=== PATIENT | male | born 1940 | race Caucasian/White ===

== ENCOUNTER 2019-06-04 12:29 | Inpatient (IN) | payer MEDICARE, BC ==
[2019-06-04] MEDS ORDERED: Acetaminophen 325 MG Tab PO PRN (16:44)
[2019-06-04] MEDS ORDERED: Ondansetron 4 MG/2 ML SDV IV PRN (16:44)
[2019-06-04] MEDS ORDERED: Ondansetron 4 MG Tab.DIS PO PRN (16:44)
--- NOTE | 2019-06-04 17:11 | PCM.HP.2 ---
H&P History of Present Illness - General Date of Service: 06/04/19 Admit Problem/Dx: Admission Diagnosis/Problem Admission Diagnosis/Problem Brain neoplasm Source of Information: Patient, Old Records History Limitations: Reports: No Limitations - History of Present Illness Initial Comments - Free Text/Narative: Patient admitted swing bed from [facility] for palliative care. Patient had history of fall x2 in 2 weeks. Had recently hit head and on blood thinners due to atrial fib. CT scan was done followed by a MRI which showed 2 masses in the brain. Had repeat MRI which showed enhancing masses in the midline corpus callosum and right parietal lobe with small area of central necrosis. Neurosurgeon felt related to metastatic disease. Had CT scan of chest, abdomen and pelvis which only showed a small pleural effusion but no evidence of metastatic disease. Oncology was consulted and after discussion with family, it was decided to not further investigate or treat the brain masses. Family requested patient be transferred back to [place] with PT and OT and eventual custodial placement. Patient had atrial fib for which Cardizem and Metoprolol to be continued but will hold Coumadin and aspirin due to bleeding risk. Palliative care patient. Onset of Symptoms: Reports: Gradual Duration of Symptoms: Reports: Week(s): Location: Reports: Generalized Associated Symptoms: Reports: Loss of Appetite, Weakness. Denies: Confusion, Chest Pain, Cough, Headaches, Nausea/Vomiting, Shortness of Breath - Related Data Allergies/Adverse Reactions: Allergies Allergy/AdvReac Type Severity Reaction Status Date / Time No Known Allergies Allergy Verified 06/04/19 13:28 Home Medications: Home Meds Folic Acid 1 mg PO DAILY 06/04/19 [History] Lisinopril 2.5 mg PO DAILY 06/04/19 [History] Magnesium Oxide 250 mg PO DAILY 06/04/19 [History] Metoprolol Succinate [Toprol XL] 25 mg PO DAILY 06/04/19 [History] Rosuvastatin Calcium 10 mg PO DAILY 06/04/19 [History] Torsemide 20 mg PO DAILY 06/04/19 [History] dilTIAZem HCl [Diltiazem 24Hr ER] 180 mg PO DAILY 06/04/19 [History] Past Medical History Cardiovascular History: Reports: Afib, CAD, Heart Failure, High Cholesterol, Hypertension, SOB on Exertion, Other (See Below) Other Cardiovascular History: aortic valve stenosis. palpitations Respiratory History: Reports: Asthma, Sleep Apnea Musculoskeletal History: Reports: Arthritis, Fracture, Osteoarthritis, Other ( See Below) Other Musculoskeletal History: unsteady gait Neurological History: Reports: Other (See Below) Other Neuro History: memory loss, brain mass (CA). cerebral edema Oncologic (Cancer) History: Reports: Brain Other Oncologic History: recently diagnosed brain mass with cerebral edema and memory loss, unsteady gait - Past Surgical History Cardiovascular Surgical History: Reports: None Respiratory Surgical History: Reports: None GI Surgical History: Reports: Hernia, Inguinal Musculoskeletal Surgical History: Reports: Hip Replacement, ORIF Other Musculoskeletal Surgeries/Procedures:: right ankle ORIF. right hip replacement Social & Family History - Tobacco Use Smoking Status *Q: Never Smoker Second Hand Smoke Exposure: No H&P Review of Systems - Review of Systems: Review Of Systems: See Below General: Reports: Malaise, Weakness, Decreased Appetite. Denies: Fever, Chills HEENT: Reports: Other (facial bruising from fall). Denies: Ear Pain, Headaches , Sore Throat Pulmonary: Denies: Shortness of Breath, Cough Cardiovascular: Denies: Chest Pain, Edema, Lightheadedness Gastrointestinal: Denies: Abdominal Pain, Nausea, Vomiting Genitourinary: Reports: No Symptoms Musculoskeletal: Reports: No Symptoms Skin: Reports: No Symptoms Neurological: Reports: Weakness Exam - Exam Exam: See Below - Vital Signs Vital Signs: Last Vital Signs Temp 96.9 F 06/04/19 14:20 Pulse 60 06/04/19 14:20 Resp 16 06/04/19 14:20 BP 142/71 H 06/04/19 14:20 Pulse Ox 99 06/04/19 14:20 Weight: 155 lb 6.4 oz - Exam General: Alert, Oriented HEENT: Mucosa Moist & [place], Nares Patent, Other (facial bruising noted to left side of face) Neck: Supple Lungs: Clear to Auscultation, Normal Respiratory Effort Cardiovascular: Irregular Rhythm GI/Abdominal Exam: Normal Bowel Sounds, Soft, Non-Tender Extremities: Normal Inspection, No Pedal Edema Skin: Ecchymosis - Problem List (1) Brain tumor SNOMED Code(s): 308382432 ICD Code: D49.6 - NEOPLASM OF UNSPECIFIED BEHAVIOR OF BRAIN Status: Acute Priority: High Current Visit: Yes Problem List Initiated/Reviewed/Updated: Yes Orders Last 24hrs: Active Orders 24 hr Category Date Time Status Patient Status [ADT] Routine ADT 06/04/19 16:44 Ordered Oxygen Therapy [RC] PRN Care 06/04/19 16:44 Ordered Up With Assistance [RC] ASDIRECTED Care 06/04/19 16:44 Ordered Vital Signs [RC] QSHIFT Care 06/04/19 16:44 Ordered PT Evaluation and Treatment [CONS] Routine Cons 06/04/19 16:44 Ordered 2 Gram Sodium Diet [DIET] Diet 06/04/19 Dinner Ordered Acetaminophen [Tylenol] Med 06/04/19 16:44 Ordered 650 mg PO Q4H PRN Diltiazem [Cardizem CD] Med 06/05/19 08:00 Ordered 180 mg PO DAILY Folic Acid Med 06/05/19 08:00 Ordered 1 mg PO DAILY Lisinopril [Prinivil] Med 06/05/19 08:00 Ordered 2.5 mg PO DAILY Magnesium Oxide Med 06/05/19 08:00 Ordered 250 mg PO DAILY Metoprolol Succinate [Toprol XL] Med 06/05/19 08:00 Ordered 25 mg PO DAILY Ondansetron [Zofran ODT] Med 06/04/19 16:44 Ordered 4 mg PO Q4H PRN Ondansetron [Zofran] Med 06/04/19 16:44 Ordered 4 mg IV Q4H PRN Rosuvastatin Calcium [Rosuvastatin Calcium] Med 06/05/19 08:00 Ordered 10 mg PO DAILY Torsemide [Demadex] Med 06/05/19 08:00 Ordered 20 mg PO DAILY dexAMETHasone Med 06/04/19 18:00 Ordered 4 mg PO Q6H levETIRAcetam [Keppra] Med 06/04/19 20:00 Ordered 500 mg PO BID Resuscitation Status Routine Resus Stat 06/04/19 16:44 Ordered Medication Orders Acetaminophen (Tylenol) 650 mg PO Q4H PRN PRN Reason: Pain (Mild 1-3)/fever Dexamethasone (Dexamethasone) 4 mg PO Q6H [facility] Diltiazem HCl (Cardizem Cd) 180 mg PO DAILY [facility] Folic Acid (Folic Acid) 1 mg PO DAILY [facility] Levetiracetam (Keppra) 500 mg PO BID [facility] Lisinopril (Prinivil) 2.5 mg PO DAILY [facility] Magnesium Oxide (Magnesium Oxide) 250 mg PO DAILY [facility] Metoprolol Succinate (Toprol Xl) 25 mg PO DAILY [facility] Non-Formulary Medication (Rosuvastatin Calcium [Rosuvastatin Calcium]) 10 mg PO DAILY [facility] Ondansetron HCl (Zofran) 4 mg IV Q4H PRN PRN Reason: Nausea/Vomiting Ondansetron HCl (Zofran Odt) 4 mg PO Q4H PRN PRN Reason: nausea, able to take PO Torsemide (Demadex) 20 mg PO DAILY [facility] Assessment/Plan Comment:: Brain Tumor Plan: patient admitted for PT for strengthening. Palliative care patient. Continue Keppra and dexamethasone. - Mortality Measure Prognosis:: Poor
[2019-06-04] MEDS: Dexamethasone 4 MG Tab PO SCH (17:41)
[2019-06-04] MEDS: levETIRAcetam 500 MG Tab PO SCH (19:40)
[2019-06-05] MEDS: Dexamethasone 4 MG Tab PO SCH ×4 (00:14→18:30)
[2019-06-05] MEDS: levETIRAcetam 500 MG Tab PO SCH ×2 (07:39→19:36)
[2019-06-05] MEDS: Torsemide 20 MG Tab PO SCH (07:40)
[2019-06-05] MEDS: Folic Acid 1 MG Tab PO SCH (07:40)
[2019-06-05] MEDS: Diltiazem 180 MG Cap.CD PO SCH (07:40)
[2019-06-05] MEDS: Metoprolol Succinate 25 MG Tab.ER PO SCH (07:41)
[2019-06-05] MEDS: Simvastatin 10 MG Tab PO SCH (07:41)
[2019-06-05] MEDS: Lisinopril 5 MG Tab PO SCH (07:42)
[2019-06-06] MEDS: Dexamethasone 4 MG Tab PO SCH ×4 (00:04→17:40)
[2019-06-06] MEDS: Lisinopril 5 MG Tab PO SCH (08:40)
[2019-06-06] MEDS: Diltiazem 180 MG Cap.CD PO SCH (08:40)
[2019-06-06] MEDS: Metoprolol Succinate 25 MG Tab.ER PO SCH (08:41)
[2019-06-06] MEDS: Torsemide 20 MG Tab PO SCH (08:41)
[2019-06-06] MEDS: levETIRAcetam 500 MG Tab PO SCH ×2 (08:41→20:54)
[2019-06-06] MEDS: Folic Acid 1 MG Tab PO SCH (08:41)
[2019-06-06] MEDS: Simvastatin 10 MG Tab PO SCH (08:41)
[2019-06-07] MEDS: Dexamethasone 4 MG Tab PO SCH ×5 (00:27→23:51)
[2019-06-07] MEDS: Lisinopril 5 MG Tab PO SCH (07:59)
[2019-06-07] MEDS: Metoprolol Succinate 25 MG Tab.ER PO SCH (08:00)
[2019-06-07] MEDS: Simvastatin 10 MG Tab PO SCH (08:01)
[2019-06-07] MEDS: Torsemide 20 MG Tab PO SCH (08:01)
[2019-06-07] MEDS: levETIRAcetam 500 MG Tab PO SCH ×2 (08:01→19:39)
[2019-06-07] MEDS: Diltiazem 180 MG Cap.CD PO SCH (08:01)
[2019-06-07] MEDS: Folic Acid 1 MG Tab PO SCH (08:01)
[2019-06-08] MEDS: Dexamethasone 4 MG Tab PO SCH ×4 (05:51→23:47)
[2019-06-08] MEDS: Simvastatin 10 MG Tab PO SCH (07:56)
[2019-06-08] MEDS: Folic Acid 1 MG Tab PO SCH (07:56)
[2019-06-08] MEDS: Torsemide 20 MG Tab PO SCH (07:56)
[2019-06-08] MEDS: Diltiazem 180 MG Cap.CD PO SCH (07:56)
[2019-06-08] MEDS: levETIRAcetam 500 MG Tab PO SCH ×2 (07:57→19:41)
[2019-06-08] MEDS: Metoprolol Succinate 25 MG Tab.ER PO SCH (07:57)
[2019-06-08] MEDS: Lisinopril 5 MG Tab PO SCH (07:58)
[2019-06-09] MEDS: Dexamethasone 4 MG Tab PO SCH ×3 (05:55→17:20)
[2019-06-09] MEDS: Torsemide 20 MG Tab PO SCH (08:19)
[2019-06-09] MEDS: levETIRAcetam 500 MG Tab PO SCH ×2 (08:19→20:18)
[2019-06-09] MEDS: Simvastatin 10 MG Tab PO SCH (08:20)
[2019-06-09] MEDS: Lisinopril 5 MG Tab PO SCH (08:20)
[2019-06-09] MEDS: Metoprolol Succinate 25 MG Tab.ER PO SCH (08:20)
[2019-06-09] MEDS: Diltiazem 180 MG Cap.CD PO SCH (08:21)
[2019-06-09] MEDS: Folic Acid 1 MG Tab PO SCH (08:21)
[2019-06-10] MEDS: Dexamethasone 4 MG Tab PO SCH ×2 (00:41→06:17)
[2019-06-10] MEDS: Folic Acid 1 MG Tab PO SCH (07:21)
[2019-06-10] MEDS: Diltiazem 180 MG Cap.CD PO SCH (07:21)
[2019-06-10] MEDS: Metoprolol Succinate 25 MG Tab.ER PO SCH (07:21)
[2019-06-10] MEDS: Torsemide 20 MG Tab PO SCH (07:21)
[2019-06-10] MEDS: Simvastatin 10 MG Tab PO SCH (07:22)
[2019-06-10] MEDS: Lisinopril 5 MG Tab PO SCH (07:22)
[2019-06-10] MEDS: levETIRAcetam 500 MG Tab PO SCH (07:22)
--- NOTE | 2019-06-10 09:26 | PCM.DCSUM1 ---
Discharge Summary - Hospital Course Free Text/Narrative:: Patient admitted to swing bed for palliative care. He was recently diagnosed with brain cancer. Had fallen and had CT scan done as well as MRI. Due to size and risks of bleeding, family opted to proceed with comfort cares. He has noted weakness to lower extremities, left arm. Physical therapy for strengthening. Plan to transfer to [facility] for palliative cares once bed available. Diagnosis: Stroke: No Modified [place] Scale: No Symptoms at All Modified [place] Scale Score: 0 - Discharge Data Discharge Date: 06/10/19 Discharge Disposition: DC/Tfer to SNF 03 Condition: Poor - Discharge Diagnosis/Problem(s) (1) Brain tumor SNOMED Code(s): 079524872 ICD Code: D49.6 - NEOPLASM OF UNSPECIFIED BEHAVIOR OF BRAIN Status: Acute Priority: High - Patient Summary/Data Complications: none Consults: Consultations 06/04/19 16:44 PT Evaluation and Treatment [CONS] Routine Hospital Course: Patient is weak. Does require 2 assist for any transfers. Has lower extremity weakness and left arm weakness. Is able to feed self yet with right arm. Is fatigued. Denies any pain. No headaches or vision changes. No nausea or vomiting. Does void frequently. Discussed with , she would like to stop his Torsemide to allow him to rest better and be more comfortable. Will also stop all meds other than blood pressure pills. Are aware may have concerns with fluid overload. Transfer to [facility] for palliative cares. - Patient Instructions Diet: Usual Diet as Tolerated Activity: As Tolerated - Discharge Plan *PRESCRIPTION DRUG MONITORING PROGRAM REVIEWED*: No *COPY OF PRESCRIPTION DRUG MONITORING REPORT IN PATIENT YARITZA: No Prescriptions/Med Rec: Acetaminophen [Tylenol] 650 mg PO Q4H PRN #30 tablet PRN Reason: Pain (Mild 1-3)/fever dexAMETHasone [Dexamethasone] 4 mg PO Q6H #120 tablet levETIRAcetam [Keppra] 500 mg PO BID #60 tablet Home Medications: Home Meds Lisinopril 2.5 mg PO DAILY 06/04/19 [History] Metoprolol Succinate [Toprol XL] 25 mg PO DAILY 06/04/19 [History] dilTIAZem HCl [Diltiazem 24Hr ER (Cd)] 180 mg PO DAILY 06/04/19 [History] Acetaminophen [Tylenol] 650 mg PO Q4H PRN #30 tablet 06/10/19 [Rx] dexAMETHasone [Dexamethasone] 4 mg PO Q6H #120 tablet 06/10/19 [Rx] levETIRAcetam [Keppra] 500 mg PO BID #60 tablet 06/10/19 [Rx] - Discharge Summary/Plan Comment DC Time >30 min.: Yes Discharge Summary/Plan Comment: Transfer to [facility]. Time with patient and family 20 minutes Time for orders 10 minutes Time for documentation 10 minutes - General Info Date of Service: 06/10/19 Admission Dx/Problem (Free Text: Admission Diagnosis/Problem Admission Diagnosis/Problem Brain neoplasm Functional Status: Reports: Pain Controlled, Tolerating Diet. Denies: Ambulating - Review of Systems General: Reports: Weakness, Fatigue HEENT: Reports: No Symptoms Pulmonary: Denies: Shortness of Breath, Cough Cardiovascular: Denies: Chest Pain, Edema, Lightheadedness Gastrointestinal: Denies: Abdominal Pain, Nausea, Vomiting Genitourinary: Reports: Urgency Musculoskeletal: Reports: No Symptoms Skin: Reports: Bruising Neurological: Reports: Weakness - Patient Data Vitals - Most Recent: Last Vital Signs Temp 97 F 06/10/19 07:20 Pulse 61 06/10/19 07:21 Resp 18 06/10/19 07:20 BP 133/54 L 06/10/19 07:22 Pulse Ox 97 06/10/19 07:20 Weight - Most Recent: 155 lb 6.4 oz Med Orders - Current: Current Medications Acetaminophen (Tylenol) 650 mg PO Q4H PRN PRN Reason: Pain (Mild 1-3)/fever Dexamethasone (Dexamethasone) 4 mg PO Q6H [facility] Last Admin: 06/10/19 06:17 Dose: 4 mg Diltiazem HCl (Cardizem Cd) 180 mg PO DAILY [facility] Last Admin: 06/10/19 07:21 Dose: 180 mg Folic Acid (Folic Acid) 1 mg PO DAILY [facility] Last Admin: 06/10/19 07:21 Dose: 1 mg Levetiracetam (Keppra) 500 mg PO BID [facility] Last Admin: 06/10/19 07:22 Dose: 500 mg Lisinopril (Prinivil) 2.5 mg PO DAILY [facility] Last Admin: 06/10/19 07:22 Dose: 2.5 mg Magnesium Oxide (Magnesium Oxide) 250 mg PO DAILY [facility] Last Admin: 06/10/19 07:22 Dose: 250 mg Metoprolol Succinate (Toprol Xl) 25 mg PO DAILY [facility] Last Admin: 06/10/19 07:21 Dose: 25 mg Ondansetron HCl (Zofran) 4 mg IV Q4H PRN PRN Reason: Nausea/Vomiting Ondansetron HCl (Zofran Odt) 4 mg PO Q4H PRN PRN Reason: nausea, able to take PO Last Admin: 06/07/19 05:27 Dose: 4 mg Simvastatin (Zocor) 10 mg PO DAILY [facility] Last Admin: 06/10/19 07:22 Dose: 10 mg Torsemide (Demadex) 20 mg PO DAILY [facility] Last Admin: 06/10/19 07:21 Dose: 20 mg - Exam General: Reports: Alert, Oriented, No Acute Distress HEENT: Reports: Mucous Membr. Moist/[place] Neck: Reports: Supple Lungs: Reports: Clear to Auscultation, Normal Respiratory Effort Cardiovascular: Reports: Regular Rate, Regular Rhythm GI/Abdominal Exam: Normal Bowel Sounds, Soft, Non-Tender Skin: Reports: Warm, Dry Neurological: Reports: No New Focal Deficit
== END 2019-06-10 10:15 | DRG 951 ==
LOC: UNDOADMIN 14:14 → CC.MS 14:14
PROVIDERS: ADMIT Family Medicine; ATTEND Family Medicine
DX: Z51.5 Encounter for palliative care (principal); C71.9 Malignant neoplasm of brain, unspecified; I48.91 Unspecified atrial fibrillation; I25.10 Atherosclerotic heart disease of native coronary artery without angina pectoris; I11.0 Hypertensive heart disease with heart failure; I50.9 Heart failure, unspecified; E78.00 Pure hypercholesterolemia, unspecified; J45.909 Unspecified asthma, uncomplicated; G47.30 Sleep apnea, unspecified; M19.90 Unspecified osteoarthritis, unspecified site; Z96.649 Presence of unspecified artificial hip joint; Z98.890 Other specified postprocedural states; Z91.81 History of falling; Z79.899 Other long term (current) drug therapy
CPT/HCPCS: 36415; 80048; 85025; 85610; 97110-GP; 97161-GP; A9270-GY; J8540